=== PATIENT | male | born 1980 | race Caucasian/White ===

== ENCOUNTER 2017-10-12 16:06 | Inpatient (IN) | payer OTHER ==
[~2017-10-12] VITALS: Ht 188 cm; Wt 73.0 kg
[2017-10-12] MEDS ORDERED: SODIUM CHLORIDE 0.9% 1000ML 1,000 ML IV STA (16:45)
[2017-10-12] MEDS ORDERED: ONDANSETRON INJ 2 MG/ML 2 ML VIAL IV STA (16:45)
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
--- NOTE | 2017-10-12 17:13 | DIAGNOSTIC IMAGING REPORT ---
CHEST ONE VIEW PORTABLE CLINICAL HISTORY: Altered mental status. Weakness. COMPARISON STUDY: No previous studies for comparison. FINDINGS: There is a scoliosis. The examination is rotated. The heart is normal in size. There is no failure. There is no focal pulmonary consolidation. There is slight interstitial thickening at the lung bases. There is minor blunting right lateral costophrenic angle. There are surgical clips within the left upper quadrant. There is mild elevation of the right scapula. There is a partially visualized 6 cm mixed lytic and sclerotic lesion involving the proximal left humerus. This is relatively nonaggressive imaging characteristics.[ IMPRESSION: 1. Mild basilar interstitial thickening, a finding of uncertain chronicity 2. No evidence of lobar consolidation 3. No evidence of failure 4. Minor blunting of the right lateral costophrenic angle Electronically signed by: Vidal Martinez M.D. 10/12/2017 5:11 PM Dictated Date/Time: 10/12/2017 5:09 PM
[2017-10-12] MEDS ORDERED: OPTIRAY 320 IV PRN (17:45)
[2017-10-12] MEDS ORDERED: LEVO200T6 PO (18:11)
[2017-10-12] MEDS ORDERED: BENZ10LO15 TOP (18:11)
[2017-10-12] MEDS ORDERED: ACYC-223 PO (18:11)
[2017-10-12] MEDS ORDERED: CLON2TAB3 PO (18:11)
[2017-10-12] MEDS ORDERED: HYDR50CA2 PO (18:11)
[2017-10-12] MEDS ORDERED: [UNRECOGNIZED DRUG - CODE] SQ (18:11)
[2017-10-12] MEDS ORDERED: LEVO50TA PO (18:11)
[2017-10-12 18:16] LABS: HEMATOCRIT 37.7 % (42-52); MEAN CELL VOLUME 94.5 fL (80-100); MEAN CORPUSCULAR HEMOGLOBIN 32.6 pg (25-34); MEAN CORPUSCULAR HGB CONC 34.5 g/dl (32-36); RED CELL DISTRIBUTION WIDTH CV 15.8 % (11.5-14.5); RED CELL DISTRIBUTION WIDTH SD 54.7 fL (36.4-46.3); WHITE BLOOD COUNT 3.85 K/uL (4.8-10.8)
[2017-10-12 18:19] LABS: ALBUMIN 3.2 gm/dl (3.4-5.0); ALKALINE PHOSPHATASE 73 U/L (45-117); ALT/SGPT 22 U/L (12-78); AST/SGOT 26 U/L (15-37); BLOOD UREA NITROGEN 10 mg/dl (7-18); CALCIUM 9.1 mg/dl (8.5-10.1); CARBON DIOXIDE 25 mmol/L (21-32); CREATININE 0.88 mg/dl (0.60-1.40); GLUCOSE 75 mg/dl (70-99); POTASSIUM 3.6 mmol/L (3.5-5.1); SODIUM 143 mmol/L (136-145); TOTAL PROTEIN 7.8 gm/dl (6.4-8.2)
[2017-10-12 18:24] LABS: PTT PATIENT 24.2 SECONDS (21.0-31.0)
[2017-10-12 18:26] LABS: MEAN PLATELET VOLUME 11.4 fL (7.4-10.4); PLATELET COUNT 61 K/uL (130-400)
[2017-10-12] MEDS ORDERED: DAPTOmycin IV 500 MG in SODIUM CHLORIDE 0.9% 50ML 50 ML IV STA (18:27)
[2017-10-12] MEDS ORDERED: PIPERACILLIN/TAZOBACTAM 4.5 GM/100ML D5W IV STA (18:27)
[2017-10-12 18:28] LABS: BASO % 3.4 %; BASO ABS # 0.13 K/uL (0-0.2); EOS % 4.4 %; EOS ABS # 0.17 K/uL (0-0.5); IG# 0.04 K/uL (0.00-0.02); LYMPH % 61.6 %; LYMPH ABS # 2.37 K/uL (1.2-3.4); MONO ABS # 1.04 K/uL (0.11-0.59); NEUT % 2.6 %
--- NOTE | 2017-10-12 19:22 | DIAGNOSTIC IMAGING REPORT ---
CT HEAD WITHOUT CONTRAST (CT) CLINICAL HISTORY: Acute change in mental status. Weakness. COMPARISON STUDY: No previous studies for comparison. TECHNIQUE: Axial CT of the brain is performed from the vertex to the skull base. IV contrast was not administered for this examination. A dose lowering technique was utilized adhering to the principles of ALARA. CT DOSE: FINDINGS: No intra or extra-axial mass lesions are visualized. There is no CT evidence of acute cortical infarction. There is no evidence of midline shift. There is no acute hemorrhage. No calvarial fractures are visualized. There is no evidence of pathologic ventricular dilatation. There is near complete opacification of the left maxillary sinus. This demonstrates areas of increased density raises the possibility of a fungal etiology. There are possible erosive changes involving the medial wall the left maxilla sinus. There are age-indeterminate nasal bone fractures. IMPRESSION: 1. No acute intracranial findings 2. Age-indeterminate nasal bone fractures 3. Inflammatory changes within the left maxillary sinus, possibly of a fungal etiology Electronically signed by: Vidal Martinez M.D. 10/12/2017 7:21 PM Dictated Date/Time: 10/12/2017 7:19 PM
--- NOTE | 2017-10-12 19:28 | DIAGNOSTIC IMAGING REPORT ---
CT ABD/PELVIS IV CONTRAST ONLY CLINICAL HISTORY: Generalized abdominal pain COMPARISON STUDY: None. TECHNIQUE: Following the IV administration of 119 mL of Optiray-320, CT scan of the abdomen and pelvis was performed from the lung bases to the proximal femurs. Images are reviewed in the axial, sagittal, and coronal planes. IV contrast was administered without complication. A dose lowering technique was utilized adhering to the principles of ALARA. CT DOSE: 1623.44 mGy.cm FINDINGS: Lower chest: There are right middle lobe and right lower lobe nodular opacities, statistically inflammatory. There is also a 6 mm left lower lobe pulmonary nodule. Follow-up scanning subsequent antibiotic therapy is recommended. There are no significant pleural effusions. Liver: There is mild hepatomegaly. No focal hepatic masses are visualized. Gallbladder: Unremarkable. Spleen: Surgically absent Pancreas: Unremarkable. Adrenal glands: Unremarkable. Kidneys: There is symmetric renal cortical enhancement. The kidneys are normal in size without hydronephrosis. Bowel: There are no transition zones indicate bowel obstruction. There is no evidence of acute diverticulitis. Evaluation is limited due to the lack of intra-abdominal fat, and the lack of oral contrast. In addition there is motion artifact. The appendix is borderline dilated but there are no periappendiceal inflammatory changes. Peritoneum: There is no intraperitoneal free air or abdominal ascites. Vasculature: There is no evidence of abdominal aortic aneurysm. There is indwelling IVC filter. Several struts project beyond the IVC lumen. Adenopathy: None. Pelvic viscera: The bladder, and pelvic viscera are unremarkable. Skeletal structures: There is an abnormal trabecular pattern of the bone suggestive of multiple bone infarcts. IMPRESSION: 1. Slightly limited study from a technical standpoint 2. No evidence of bowel obstruction. No evidence of free air 3. Mild hepatomegaly. Surgically absent spleen 4. 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 5. Right middle lobe and right lower lobe nodularity, likely secondary to a pneumonia. There is also a nonspecific subcentimeter left lower lobe pulmonary nodule. Follow-up scanning subsequent to antibiotic therapy is recommended. Electronically signed by: Vidal Martinez M.D. 10/12/2017 7:27 PM Dictated Date/Time: 10/12/2017 7:21 PM
[2017-10-12] MEDS ORDERED: SODIUM CHLORIDE 0.9% 500ML 500 ML IV STA (20:18)
--- NOTE | 2017-10-12 22:57 | EMERGENCY ROOM VISIT NOTE ---
ED Visit Note First contact with patient: 16:39 The patient was to be transferred to [facility] in [place]. Unfortunately, an ambulance could not be secured until tomorrow at 9:00 in the morning. I did speak with the [facility] hospitalist from [facility]. The patient will be hospitalized at this facility overnight and then transferred in the morning when an ambulance is available.
[2017-10-13 01:03] VITALS: O2SAT 96
[2017-10-13] MEDS ORDERED: ACETAMINOPHEN 325 MG TAB PO PRN (01:45)
[2017-10-13] MEDS ORDERED: PROCHLORPERAZINE INJ 5 MG in SYRINGE 4 ML IV PRN (01:45)
[2017-10-13] MEDS ORDERED: CLONAZEPAM 1 MG TAB PO PRN (01:45)
[2017-10-13] MEDS ORDERED: OXYCODONE/ACETAMINOPHEN 5-325 TAB PO PRN (01:45)
[2017-10-13 01:53] VITALS: BP 97/52; TEMP 36.9; Ht 188 cm; Wt 73.0 kg
[2017-10-13] MEDS ORDERED: SODIUM CHLOR 0.45% + 20MEQ KCL 1,000 ML IV ONE (02:00)
[2017-10-13 02:35] LABS: CALCIUM 8.4 mg/dl (8.5-10.1); CREATININE 0.86 mg/dl (0.60-1.40); POTASSIUM 3.6 mmol/L (3.5-5.1)
[2017-10-13 02:48] LABS: HEMATOCRIT 31.8 % (42-52); HEMOGLOBIN 10.9 g/dL (14.0-18.0); MEAN CELL VOLUME 94.6 fL (80-100); MEAN CORPUSCULAR HEMOGLOBIN 32.4 pg (25-34); MEAN CORPUSCULAR HGB CONC 34.3 g/dl (32-36); MEAN PLATELET VOLUME 10.3 fL (7.4-10.4); PLATELET COUNT 71 K/uL (130-400); RED CELL DISTRIBUTION WIDTH CV 15.8 % (11.5-14.5); RED CELL DISTRIBUTION WIDTH SD 54.3 fL (36.4-46.3); WHITE BLOOD COUNT 3.78 K/uL (4.8-10.8)
[2017-10-13 03:38] LABS: BASO % 3.7 %; BASO ABS # 0.14 K/uL (0-0.2); EOS % 5.3 %; IG# 0.01 K/uL (0.00-0.02); LYMPH % 53.2 %; LYMPH ABS # 2.01 K/uL (1.2-3.4); MONO ABS # 1.17 K/uL (0.11-0.59); NEUT % 6.5 %; NEUT ABS # 0.25 K/uL (1.4-6.5)
[2017-10-13] MEDS: LEVOTHYROXINE 200 MCG TAB PO SCH ×2 (06:12→06:23)
[2017-10-13] MEDS: LEVOTHYROXINE 50 MCG TAB PO SCH ×2 (06:13→06:23)
[2017-10-13 06:46] VITALS: BP 97/52; PULSE 80; TEMP 36.9; O2SAT 96
--- NOTE | 2017-10-13 07:43 | Discharge Instructions ---
Discharge Instructions Date of Service October 13, 2017. Admission Reason for Admission: Pancytopenia Discharge Discharge Diagnosis / Problem: Pancytopenia, persistent bowel incontinence Discharge Goals Goal(s): Diagnostic testing, Therapeutic intervention Activity Recommendations Activity Level: Up Ad Janine . Additional Information Patient informed of condition: Yes Advance Directives: No DNR: No Level of Care: Other Communicable Disease: No (hx mrsa) Prognosis: Stable Bhardwaj Catheter: No Current Hospital Diet Patient's current hospital diet: Regular Diet, Low Lactose Diet Discharge Diet Recommended Diet: Regular Diet Fluid Restriction: None Pending Studies Studies pending at discharge: yes (HIT screen) List of pending studies: HIT screen Medical Emergencies . Who to Call and When: Medical Emergencies: If at any time you feel your situation is an emergency, please call 911 immediately. . Non-Emergent Contact Non-Emergency issues call your: Primary Care Provider . Past History Medical & Surgical History: (1) Pancytopenia (2) History of MRSA infection (3) History of spinal surgery . "Provider Documentation" section prepared by Bob Orellana . Core Measure Problem Core Measures: None
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
[2017-10-13] MEDS ORDERED: ACYCLOVIR 400 MG TAB PO SCH (09:00)
--- NOTE | 2017-10-13 18:09 | Discharge Summary ---
Discharge Summary Date of Service October 13, 2017. Discharge Summary Date of admission : 10/13/2017 Date of discharge: 10/13/2017 DIAGNOSES ON ADMISSION: 1. Pancytopenia New onset thrombocytopenia; history thrombocythemia as per records-intermittent epistaxis symptoms (past history ITP sp splenectomy on Romiplostin) ro HIT (Lovenox administration during recent [facility] confinement) Chronic anemia (hemoglobin better than baseline of 10) Chronic leukopenia 2. Worsening back pain, persistent bowel incontinence post recent [facility] confinement September 2017 hx spinal abscess surgery (MRSA as per records) July 2017[facility]. No overt sepsis for now. 3. Recent confinement in [facility] for intentional foreign body ingestions sp colonoscopic removal (09/2017) 4. hx PE not on anticoagulation secondary to past history thrombocytopenia status post IVC filter placement 5. hypothyroidism, TSH slightly elevated 6. Past tobacco abuse 7. hx malingering behavior as per records DIAGNOSES ON DISCHARGE : 1. Pancytopenia New onset thrombocytopenia; history thrombocythemia as per records-intermittent epistaxis symptoms (past history ITP sp splenectomy on Romiplostin) ro HIT (Lovenox administration during recent [facility] confinement) Chronic anemia (hemoglobin better than baseline of 10) Chronic leukopenia 2. Worsening back pain, persistent bowel incontinence post recent [facility] confinement September 2017 hx spinal abscess surgery (MRSA as per records) July 2017[facility]. No overt sepsis for now. 3. Recent confinement in [facility] for intentional foreign body ingestions sp colonoscopic removal (09/2017) 4. hx PE not on anticoagulation secondary to past history thrombocytopenia status post IVC filter placement 5. hypothyroidism, TSH slightly elevated 6. Past tobacco abuse 7. hx malingering behavior as per records 8. abnormal HIT screen HOSPITAL COURSE: Briefly, the patient is an inmate who was brought to the hospital for evaluation of weakness, persistent bowel incontinence since colonoscopy at [place] a few days ago, back pain. Head CT did not show any pathology. CT abdomen and pelvis showed no evidence of bowel obstruction, mild hepatomegaly, absent spleen. LABORATORY DATA: , hemoglobin 13, hematocrit 37, white cell count 3.8, platelets 61. Patient received Daptomycin and Zosyn at [facility] ER for possible infection. Accepted for transfer by [facility] hospitalist verification lead, Dr. cShmitt. Transfer precluded by transportation unavailability. Patient subsequently admitted to the floor pending transport availability in AM. Heparin induced thrombocytopenia (HIT) screen noted to be abnormal. Rest of HIT panel pending. Peripheral blood smear studies pending. May need Hematology evaluation at [facility]. No additional antibiotics given during inpatient stay sans overt signs of sepsis. Dedicated imaging for patient's back complaints to be deferred to [facility], [place] specialist if felt to be warranted. Total time to dictate this discharge summary was 15 minutes.
[2017-10-13] MEDS ORDERED: hydrOXYzine HCL 25 MG TAB PO SCH (21:00)
== END 2017-10-13 08:16 | disposition short-term general hospital (02) | DRG 810 ==
LOC: C.EDB 16:08 → C.MS2W 10-13 00:26 → UNDOADMIN 10-13 00:26 → ENRESERV 10-13 00:56
PROVIDERS: ADMIT Internal Medicine; ATTEND Internal Medicine
DX: D61.818 Other pancytopenia (principal); D69.6 Thrombocytopenia, unspecified; D75.82 Heparin induced thrombocytopenia (HIT); D72.819 Decreased white blood cell count, unspecified; M54.9 Dorsalgia, unspecified; R15.9 Full incontinence of feces; E03.9 Hypothyroidism, unspecified; Z86.2 Personal history of diseases of the blood and blood-forming organs and certain disorders involving the immune mechanism; Z86.14 Personal history of Methicillin resistant Staphylococcus aureus infection; Z86.711 Personal history of pulmonary embolism; Z87.891 Personal history of nicotine dependence; Z90.81 Acquired absence of spleen; Z98.890 Other specified postprocedural states; Z79.899 Other long term (current) drug therapy; Z88.1 Allergy status to other antibiotic agents; Z88.2 Allergy status to sulfonamides; Z88.6 Allergy status to analgesic agent

== ENCOUNTER → 2017-11-28 | Outpatient (CLI) | payer OTHER ==
[~2017-11-28] MED LIST: ACET-1175 PO; CLON0.5T9 PO; CYAN1TAB2 PO; DOXY100C76 PO; FOLI1TAB8 PO; HYDR50CA2 PO; LEVO1TAB34 PO; LEVO200T6 PO; LEVO50TA PO; LEVO50TA6 PO; MULT-506 PO; MULT1CAP57 PO; NORT25CA PO; NUTR-1260 PO; ONDA4TAB46 PO; PRD/1 PO; PRLSR20 PO; PYRI100T4 PO; [UNRECOGNIZED DRUG - CODE] PO; [UNRECOGNIZED DRUG - CODE] PO; [UNRECOGNIZED DRUG - CODE] SQ
[2017-11-28 02:31] LABS: HEMATOCRIT 26.3 % (42-52); MEAN CELL VOLUME 114.3 fL (80-100); MEAN CORPUSCULAR HEMOGLOBIN 39.1 pg (25-34); MEAN CORPUSCULAR HGB CONC 34.2 g/dl (32-36); NUCLEATED RED BLOOD CELL ABS 0.12 K/uL (0-0); PLATELET COUNT 12 K/uL (130-400); RED CELL DISTRIBUTION WIDTH CV 18.3 % (11.5-14.5); RED CELL DISTRIBUTION WIDTH SD 61.1 fL (36.4-46.3); WHITE BLOOD COUNT 4.22 K/uL (4.8-10.8)
[2017-11-28 05:38] LABS: BASO % 2.6 %; BASO ABS # 0.11 K/uL (0-0.2); EOS % 1.2 %; EOS ABS # 0.05 K/uL (0-0.5); MONO % 32.2 %; MONO ABS # 1.36 K/uL (0.11-0.59)
--- NOTE | 2018-01-02 08:31 | CODING QUERY NO DIAGNOSIS ---
TREATMENT RENDERED WITHOUT A DIAGNOSIS To promote full compliance with coding requirements relating to patient care, physician participation is requested in all cases of manager sterile uncertainty. Please assist us with providing a diagnosis/symptom for the test(s) below: A diagnosis/symptom was not documented on your Order. A valid diagnosis/symptom is required to bill all insurances. Please remember that we are unable to code a diagnosis of rule out, probable, possible, questionable, or suspected. Tests that require a diagnosis: DOS: 11/28/17 * CBC W/ AUTO DIFF DIAGNOSIS: Provider Signature: Date: Thank you Bonnie Jones [id number] Information Management Once completed, please kindly fax back to [phone] For questions please call [phone]
== END ==
LOC: C.LABSPEC 12:01
DX: Z01.89 Encounter for other specified special examinations (principal)

== ENCOUNTER → 2017-12-12 | Outpatient (CLI) | payer OTHER ==
[2017-12-12 10:25] LABS: HEMATOCRIT 32.7 % (42-52); HEMOGLOBIN 10.9 g/dL (14.0-18.0); MEAN CELL VOLUME 121.1 fL (80-100); MEAN CORPUSCULAR HEMOGLOBIN 40.4 pg (25-34); MEAN CORPUSCULAR HGB CONC 33.3 g/dl (32-36); PLATELET COUNT 6 K/uL (130-400); RED CELL DISTRIBUTION WIDTH CV 18.8 % (11.5-14.5); RED CELL DISTRIBUTION WIDTH SD 74.1 fL (36.4-46.3); WHITE BLOOD COUNT 4.54 K/uL (4.8-10.8)
[2017-12-12 10:26] LABS: BASO % 4.2 %; BASO ABS # 0.19 K/uL (0-0.2); EOS % 3.7 %; EOS ABS # 0.17 K/uL (0-0.5); LYMPH % 59.3 %; LYMPH ABS # 2.69 K/uL (1.2-3.4); MONO % 24.4 %; MONO ABS # 1.11 K/uL (0.11-0.59); NEUT % 8.4 %; NEUT ABS # 0.38 K/uL (1.4-6.5)
== END ==
LOC: C.LABSPEC 09:20
DX: Z01.89 Encounter for other specified special examinations (principal)

== ENCOUNTER → 2017-12-25 | Outpatient (CLI) | payer OTHER ==
[~2017-12-25] MED LIST changes: -MULT-506 PO
[2017-12-25 10:00] LABS: HEMATOCRIT 38.3 % (42-52); HEMOGLOBIN 12.2 g/dL (14.0-18.0); MEAN CELL VOLUME 113.6 fL (80-100); MEAN CORPUSCULAR HEMOGLOBIN 36.2 pg (25-34); MEAN PLATELET VOLUME 9.9 fL (7.4-10.4); PLATELET COUNT 753 K/uL (130-400); RED CELL DISTRIBUTION WIDTH CV 13.8 % (11.5-14.5); RED CELL DISTRIBUTION WIDTH SD 57.5 fL (36.4-46.3); WHITE BLOOD COUNT 6.66 K/uL (4.8-10.8)
[2017-12-25 10:05] LABS: MEAN CORPUSCULAR HGB CONC 31.9 g/dl (32-36)
[2017-12-25 10:27] LABS: BASO % 0.6 %; BASO ABS # 0.04 K/uL (0-0.2); EOS % 0.3 %; EOS ABS # 0.02 K/uL (0-0.5); LYMPH % 50.2 %; LYMPH ABS # 3.34 K/uL (1.2-3.4); MONO % 30.5 %; MONO ABS # 2.03 K/uL (0.11-0.59); NEUT % 18.4 %; NEUT ABS # 1.23 K/uL (1.4-6.5)
== END | disposition home or self-care (01) ==
LOC: C.LABSPEC 09:13
DX: D69.3 Immune thrombocytopenic purpura (principal)

== ENCOUNTER → 2017-12-28 | Outpatient (CLI) | payer OTHER ==
[2017-12-28 17:38] LABS: BASO % 0.3 %; BASO ABS # 0.02 K/uL (0-0.2); HEMATOCRIT 39.7 % (42-52); HEMOGLOBIN 12.7 g/dL (14.0-18.0); IG# 0.01 K/uL (0.00-0.02); LYMPH % 24.6 %; LYMPH ABS # 1.75 K/uL (1.2-3.4); MEAN CELL VOLUME 111.2 fL (80-100); MEAN CORPUSCULAR HEMOGLOBIN 35.6 pg (25-34); MEAN PLATELET VOLUME 9.9 fL (7.4-10.4); MONO % 14.9 %; MONO ABS # 1.06 K/uL (0.11-0.59); NEUT % 60.1 %; NEUT ABS # 4.28 K/uL (1.4-6.5); PLATELET COUNT 456 K/uL (130-400); RED CELL DISTRIBUTION WIDTH CV 13.1 % (11.5-14.5); RED CELL DISTRIBUTION WIDTH SD 52.7 fL (36.4-46.3); WHITE BLOOD COUNT 7.12 K/uL (4.8-10.8)
== END | disposition home or self-care (01) ==
LOC: C.LABSPEC 17:19
PROVIDERS: ATTEND Physician Assistant
DX: D69.41 Evans syndrome (principal)

== ENCOUNTER → 2017-12-31 | Outpatient (CLI) | payer OTHER ==
[2017-12-31 16:15] LABS: BASO % 0.6 %; BASO ABS # 0.05 K/uL (0-0.2); EOS % 0.2 %; EOS ABS # 0.02 K/uL (0-0.5); HEMATOCRIT 40.3 % (42-52); HEMOGLOBIN 12.7 g/dL (14.0-18.0); IG# 0.01 K/uL (0.00-0.02); LYMPH % 19.9 %; LYMPH ABS # 1.66 K/uL (1.2-3.4); MEAN CELL VOLUME 111.6 fL (80-100); MEAN CORPUSCULAR HEMOGLOBIN 35.2 pg (25-34); MEAN CORPUSCULAR HGB CONC 31.5 g/dl (32-36); MEAN PLATELET VOLUME 10.5 fL (7.4-10.4); MONO % 9.6 %; NEUT % 69.6 %; NEUT ABS # 5.82 K/uL (1.4-6.5); PLATELET COUNT 216 K/uL (130-400); RED CELL DISTRIBUTION WIDTH CV 13.2 % (11.5-14.5); RED CELL DISTRIBUTION WIDTH SD 53.6 fL (36.4-46.3); WHITE BLOOD COUNT 8.36 K/uL (4.8-10.8)
[2017-12-31 16:43] LABS: ALBUMIN 3.9 gm/dl (3.4-5.0); ALKALINE PHOSPHATASE 71 U/L (45-117); ALT/SGPT 55 U/L (12-78); AST/SGOT 25 U/L (15-37); BLOOD UREA NITROGEN 21 mg/dl (7-18); CALCIUM 8.9 mg/dl (8.5-10.1); CARBON DIOXIDE 29 mmol/L (21-32); CREATININE 0.97 mg/dl (0.60-1.40); GLUCOSE 92 mg/dl (70-99); POTASSIUM 4.1 mmol/L (3.5-5.1); SODIUM 139 mmol/L (136-145); TOTAL PROTEIN 7.5 gm/dl (6.4-8.2)
== END | disposition home or self-care (01) ==
LOC: C.LABSPEC 14:46
PROVIDERS: ATTEND Physician Assistant Medical
DX: D69.3 Immune thrombocytopenic purpura (principal)

== ENCOUNTER 2018-01-04 16:59 | Inpatient (IN) | payer OTHER ==
[~2018-01-04] VITALS: Ht 188 cm; Wt 82.8 kg
[~2018-01-04 16:59] MED LIST changes: -DOXY100C76 PO; -LEVO1TAB34 PO; -LEVO200T6 PO; -LEVO50TA6 PO; -NORT25CA PO; -ONDA4TAB46 PO; -PRD/1 PO; -PRLSR20 PO; -[UNRECOGNIZED DRUG - CODE] PO
[2018-01-04] MEDS ORDERED: LEVO200T6 PO (18:11)
--- NOTE | 2018-01-04 19:05 | EMERGENCY ROOM VISIT NOTE ---
History Report prepared by Sandy: Sivakumar Guzman Under the Supervision of: Dr. Rodney Sanabria M.D. First contact with patient: 18:51 Chief Complaint: ABNORMAL LABS Stated Complaint: ABNORMAL LABS, PLATELETS 5000 History of Present Illness The patient is a 37 year old male with a past medical history of autoimmune thrombocytopenia, hx if ITP, Hx os MRSA infection, hypothyroidism, pancytopenia, personality disorder, and polysubstance abuse who presents to the ED after having a low platelet count in recent lab work. The patient states that his platelet count has been an issue for a while and he follows up with [facility]. The patient explained that his platelet count has been worsening each week. He also notes that he has a history of ITP and has received IVIG and transfusion treatments. He also noted that he takes prednisone daily. Positive intermittent epistaxis, genitival bleeding when brushing teeth, Hx of back infection and operation, MRSA, and abnormal LFTs. Source of History: patient Onset: Within the last day Position: nose Quality: other (bleeding) Timing: intermittent Associated Symptoms: + back pain Review of Systems See HPI for pertinent positives and negatives. A total of ten systems were reviewed and were otherwise negative. Past Medical & Surgical Medical Problems: (1) Autoimmune thrombocytopenia (2) History of ITP (3) History of MRSA infection (4) Hx of infection (5) Hypothyroidism (6) Pancytopenia (7) Personality disorder (8) Polysubstance abuse Surgical Problems: (1) H/O Spinal surgery (2) H/O splenectomy (3) History of spinal surgery Family History Heart disease Social History Smoking Status: Never Smoker Alcohol Use: none Drug Use: none Marital Status: single Housing Status: other Occupation Status: other Current/Historical Medications Scheduled Clonazepam (Klonopin), 0.5 MG PO BID Cyanocobalamin (B-12), 100 MG PO DAILY Doxycycline Monohydrate (Monodox), 100 MG PO BID Folic Acid (Folvite), 1 MG PO DAILY Hydroxyzine Pamoate (Vistaril), 50 MG PO BID Levothyroxine Sodium (Levothyroxine Sodium), 200 MCG PO DAILY Levothyroxine Sodium (Levothyroxine Sodium), 1 TAB PO DAILY Multiple Vitamin (Thera-Tabs), 1 TAB PO DAILY Nortriptyline (Pamelor), 25 MG PO HS Omeprazole (Prilosec), 20 MG PO DAILY Prednisone (Prednisone), 1 DOSE PO UD Pyridoxine (Vitamin B6), 100 MG PO BID Scheduled PRN Ondansetron Hcl (Zofran), 4 MG PO QID PRN for Nausea Allergies Coded Allergies: Aspirin (Unverified Allergy, Unknown, UNKNOWN, 01/04/18) Azithromycin (Unverified Allergy, Unknown, UNKNOWN, 01/04/18) Ibuprofen (Unverified Allergy, Unknown, UNKNOWN, 01/04/18) Naproxen (Unverified Allergy, Unknown, UNKNOWN, 01/04/18) Sulfamethoxazole w/Trimethoprim (Unverified Allergy, Unknown, UNKNOWN, 03/14) Uncoded Allergies: NO OC SPRAY (Allergy, Unknown, UNKNOWN, 10/12/17) Physical Exam Vital Signs Date Time Temp Pulse Resp B/P (MAP) Pulse Ox O2 Delivery O2 Flow Rate FiO2 01/04/18 21:40 72 16 117/70 97 01/04/18 20:36 116/89 95 Room Air 01/04/18 20:35 71 21 01/04/18 20:30 109/73 01/04/18 20:29 69 19 01/04/18 20:01 106/71 01/04/18 19:59 83 18 01/04/18 19:46 69 01/04/18 19:30 110/71 01/04/18 17:31 36.7 81 18 123/77 97 Room Air Physical Exam GENERAL: Awake, alert, well-appearing, NAD HENT: Normocephalic, atraumatic. EYES: Normal conjunctiva. Sclera non-icteric. PERRL. No anisocoria. NECK: Supple. No nuchal rigidity. FROM. Very long vertical incisional scar running from mid C spine to upper L spine with the distal portion bandaged. RESPIRATORY: CTAB, no rhonchi, wheezing, crackles CARDIAC: RRR, no MRG ABDOMEN: Soft, NTND, BS+ MSK: No chest wall TTP, no LE edema NEURO: GCS 15, CN 2-12 intact, moves all 4s on command SKIN: No rash or jaundice noted.Cutting scars bilateral UE, no petechiae or purpura noted Medical Decision & Procedures Laboratory Results Test 01/04/18 19:05 Neutrophils % (Manual) 37.6 % Lymphocytes % (Manual) 27.2 % Variant Lymphocytes % (manual) 15.8 % Monocytes % (Manual) 15.8 % Eosinophils % (Manual) 1.8 % Basophils % (Manual) 1.8 % (0-2) Neutrophils # (Manual) 1.96 K/uL (1.4-6.5) Total Absolute Neutrophils 1.96 K/uL (1.4-6.5) Lymphocytes # (Manual) 1.41 K/uL (1.2-3.4) Absolute Variant Lymphocytes 0.82 K/uL Total Absolute Lymphocytes 2.24 K/uL (1.2-3.4) Monocytes # (Manual) 0.82 K/uL (0.11-0.59) Eosinophils # (Manual) 0.09 K/uL (0-0.5) Basophils # (Manual) 0.09 K/uL (0-0.2) Stomatocytes 1+ Prothrombin Time 9.7 SECONDS (9.0-12.0) Prothromb Time International Ratio 0.9 (0.9-1.1) Activated Partial Thromboplast Time 22.9 SECONDS (21.0-31.0) Partial Thromboplastin Ratio 0.9 Total Bilirubin 0.6 mg/dl (0.2-1) Direct Bilirubin 0.2 mg/dl (0-0.2) Aspartate Amino Transf (AST/SGOT) 29 U/L (15-37) Alanine Aminotransferase (ALT/SGPT) 37 U/L (12-78) Alkaline Phosphatase 62 U/L (45-117) Total Protein 7.6 gm/dl (6.4-8.2) Albumin 3.7 gm/dl (3.4-5.0) Lipase 409 U/L (73-393) Laboratory results reviewed by me Medications Administered Medications (Trade) Dose Ordered Sig/Mayra Route Start Time Stop Time Status Last Admin Dose Admin Oxymetazoline HCl (Afrin 0.05% Nasal [place]) 75 sprays STK-MED ONCE .ROUTE 01/04/18 19:19 01/04/18 19:20 DC 01/04/18 19:19 75 SPRAYS Prednisone (PredniSONE TAB) 80 mg STK-MED ONCE .ROUTE 01/04/18 21:02 01/04/18 21:03 DC 01/04/18 21:12 80 MG Pantoprazole Sodium (Protonix Tab) 40 mg NOW STAT PO 01/04/18 21:19 01/04/18 21:34 DC 01/04/18 21:38 40 MG ED Course 1857: The patient was evaluated in room A11. A complete history and physical exam was performed. 1914: I evaluated the patient[place] [address] and hemoglobin of 9. 1941: I reevaluated the patient and he is experiencing light epistaxis and he refused to clamp but was willing to use a tissue. 2019: I spoke to Dr. Kurt Taylor instructor programmable controllers and she recommends transfusion and prednisone. If there is no response after 24-48 hours, then transfer the patient to [facility]. 2100:Upon reexamination, the patient was resting in bed. I discussed the test results and treatment plan with Dr. Carrie Taylor Hospitalist. The patient will be evaluated for further management by him. Medical Decision Nursing notes reviewed. Ancillary studies and prior records reviewed. DDx: Thrombocytopenia, coagulopathy, infection, indication side effects Patient was seen and evaluated the bedside. The patient had a known history of ITP. 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 The patient had also received IVIG as well as steroids and platelet transfusions. The patient was referred here for low platelet count. Upon review of his lab work it appeared to be that the patient had a platelet count of 55,000. Patient did have repeat blood work completed. The patient's hemoglobin was much improved compared to prior however the patient's platelet count was at 5000. The patient did have some very light epistaxis that was well controlled just with the tissue. The patient did have some Afrin applied. Patient declined to use a nasal clinic. I did reiterate to the patient that we would need to stem his bleeding especially given his coagulopathy. I did speak with the on-call instructor programmable controllers oncologist from [facility] who stated that she would recommend load of prednisone. The patient initially declined. I had a discussion with the patient that if he declined treatment that he would not benefit from admission. The patient acquiesced to treatment. Patient was given 1 mg/kg load. I did speak with the on-call instructor programmable controllers oncologist at [facility]. She recommended continuing to do the prednisone as a load but would recommend against any platelet transfusion at this time. She stated this would only be necessary if the patient had uncontrollable bleeding or concerning bleeding. I do not believe he has concerning bleeding at this time. She also recommended drawing blood cultures as the patient has had dementia for developing thrombocytopenia secondary to infection. The patient currently denies any headache fevers, chills, cough, urinary symptoms. The patient has a nonfocal neurologic exam I do not believe he requires a CT of the brain. I did speak with the on-call hospitalist who agreed to further evaluate and treat the patient with the understanding that the patient's thrombocytopenia did not improve that he would be transferred to [facility]. Medication Reconcilliation Current Medication List: was personally reviewed by me Blood Pressure Screening Patient's blood pressure: Normal blood pressure Consults Time Called: 2014 Consulting Physician: Dr. Kurt Taylor Milieu Therapist Returned Call: 2018 Discussed the patient's case with Dr. Kurt Haider. She recommends transfusion and prednisone. If there is no response after 24-48 hours , then transfer the patient to [facility]. Additional Consults: Time Called: 2100 Consulted Physician: Dr. Carrie Taylor Hospitallori Returned Call: 2100 Additional Comments: Discussed the patient's case with Dr. Carrie Haider. The patient will be evaluated for further treatment and disposition. Consulted Physician: [facility] Heme/Onc Service Additional Comments: Physician recommended treatment w/ 1mg/kg load of prednisone PO. No platelet transfusion at this time unless uncontrollable or concerning hemorrhage. Plan for re-eval w/ labs and if little to no improvement may transfer for further eval/treatment tomorrow or earlier if clinical deterioration or issues. Impression Primary Impression: Acute ITP Additional Impressions: Epistaxis Anemia Scribe Attestation The scribe's documentation has been prepared under my direction and personally reviewed by me in its entirety. I confirm that the note above accurately reflects all work, treatment, procedures, and medical decision making performed by me. Departure Information Dispostion Being Evaluated By Hospitalist Prescriptions Levothyroxine Sodium (LEVOTHYROXINE SODIUM) 50 Mcg Tab 1 TAB PO DAILY for 30 Days, #30 TAB 1 Refill Prov: Berry Butler MD 01/04/18 Referrals Jose PEREZ (PCP) Forms HOME CARE DOCUMENTATION FORM, IMPORTANT VISIT INFORMATION, WORK / SCHOOL INSTRUCTIONS Patient Instructions My [facility] Problem Qualifiers Additional Impressions: Anemia Anemia type: unspecified type Qualified Codes: D64.9 - Anemia, unspecified
[2018-01-04] MEDS ORDERED: OXYMETAZOLINE HCL 0.05% NA SPR 15 ML BTL ONE ×2 (19:19→19:30)
[2018-01-04 19:30] LABS: INR 0.9 (0.9-1.1); PTT PATIENT 22.9 SECONDS (21.0-31.0)
[2018-01-04 19:40] LABS: ALBUMIN 3.7 gm/dl (3.4-5.0); ALKALINE PHOSPHATASE 62 U/L (45-117); ALT/SGPT 37 U/L (12-78); AST/SGOT 29 U/L (15-37); BLOOD UREA NITROGEN 21 mg/dl (7-18); CALCIUM 9.1 mg/dl (8.5-10.1); CARBON DIOXIDE 30 mmol/L (21-32); CREATININE 0.87 mg/dl (0.60-1.40); GLUCOSE 74 mg/dl (70-99); LIPASE 409 U/L (73-393); POTASSIUM 3.8 mmol/L (3.5-5.1); SODIUM 140 mmol/L (136-145); TOTAL PROTEIN 7.6 gm/dl (6.4-8.2)
[2018-01-04 20:01] LABS: HEMATOCRIT 38.6 % (42-52); HEMOGLOBIN 12.5 g/dL (14.0-18.0); MEAN CELL VOLUME 107.2 fL (80-100); MEAN CORPUSCULAR HEMOGLOBIN 34.7 pg (25-34); MEAN CORPUSCULAR HGB CONC 32.4 g/dl (32-36); PLATELET COUNT 5 K/uL (130-400); RED CELL DISTRIBUTION WIDTH CV 13.1 % (11.5-14.5); RED CELL DISTRIBUTION WIDTH SD 51.3 fL (36.4-46.3)
[2018-01-04] MEDS ORDERED: LEVO1TAB34 PO (21:11)
[2018-01-04] MEDS ORDERED: PRD/1 PO (21:11)
[2018-01-04] MEDS ORDERED: [UNRECOGNIZED DRUG - CODE] PO (21:11)
[2018-01-04] MEDS ORDERED: DOXY100C76 PO (21:11)
[2018-01-04] MEDS ORDERED: NORT25CA PO (21:11)
[2018-01-04] MEDS ORDERED: PRLSR20 PO (21:11)
[2018-01-04] MEDS ORDERED: HYDR50CA2 PO (21:11)
[2018-01-04] MEDS ORDERED: ONDA4TAB46 PO (21:11)
[2018-01-04] MEDS ORDERED: PANTOprazole SOD 40 MG TAB PO STA (21:19)
[2018-01-04] MEDS ORDERED: ALUMINUM/MAGNESIUM/SIMETH (MAALOX MAX) 30 ML UDC PO PRN (22:15)
[2018-01-04] MEDS ORDERED: ACETAMINOPHEN 325 MG TAB PO PRN (22:15)
[2018-01-04] MEDS ORDERED: NITROGLYCERIN 0.4 MG SL PER TAB CHARGE SL PRN (22:15)
[2018-01-04] MEDS ORDERED: ONDANSETRON 4 MG TAB PO PRN (22:15)
[2018-01-04] MEDS ORDERED: ONDANSETRON INJ 2 MG/ML 2 ML VIAL IV PRN (22:15)
[2018-01-04] MEDS ORDERED: LEVO50TA6 PO (22:20)
[2018-01-04 23:20] VITALS: O2SAT 97
[2018-01-05] VITALS (10 sets, daily range): BP systolic 101–127; BP diastolic 51–85; PULSE 58–70; TEMP 36.6–37.4; O2SAT 95–98; Ht 188 cm; Wt 82.8 kg
--- NOTE | 2018-01-05 00:13 | HISTORY & PHYSICAL EXAMINATION ---
DATE OF ADMISSION: 01/04/2018 CHIEF COMPLAINT: Thrombocytopenia. 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 and today his labs showed again low platelets and was brought here. He has a mild epistaxis which is under control now. His platelets are around 5000. ER physician called [facility] for transfer there, but they recommended prednisone and observed for 24 hours. Myself called [facility] again and spoke with the strip presser again for possible of transfer of patient as they know the patient and also if patient started to decompensate we do not have support here, but [facility] wanted to wait with the prednisone and see as they have nothing more to offer.Currently patient is resting comfortably. Denies any headaches, no blurred vision, no dizziness, no cough, no nausea, no vomiting, no ear ache, no runny nose, no sore throat, no chest pain, no shortness of breath, no abdominal pain. Normal bowel and bladder movements. No blood in the stools, no blood in the urine. Appetite is okay. Mostly wheelchair bound because of his back pain, can walk only few steps. ALLERGIES: ASPIRIN, ERYTHROMYCIN, IBUPROFEN, NASAL OCEAN SPRAY, NAPROXEN, BACTRIM. PAST MEDICAL HISTORY: As mentioned above. PAST SURGICAL HISTORY: Colonoscopy, incision and drainage of the knee and ankle, EGD with biopsy, incision and drainage of the deep cervical, thoracic spine incision, incision and drainage of the deep abscess of posterior lumbar spine, laminectomy. MEDICATIONS: The patient is currently on nortriptyline 25 mg p.o. daily, vitamin B6 100 mg b.i.d., Klonopin 2 mg every 8 hours p.r.n., levothyroxine 250 mcg p.o. daily, vitamin B12 1000 mcg daily, multivitamin 1 tablet daily, Tylenol 650 mg p.o. q. 8 hours p.r.n., omeprazole 20 mg p.o. daily, prednisone currently he do not know exact dose, thinks this is 5 mg, he was on prednisone taper, folic acid 1 mg p.o. daily. FAMILY HISTORY: No family history on file. SOCIAL HISTORY: Former smoker, quit in 2017, smoked 2 packs a day. No alcohol use. No drug use. Single, [facility]. REVIEW OF SYMPTOMS: As per HPI. Rest of review of systems negative. PHYSICAL EXAMINATION: GENERAL: The patient is of moderate build, not in distress. VITAL SIGNS: Temperature 36.7, pulse 72, respiratory rate 16, blood pressure 117/70, oxygen 97% room air. HEENT: No pallor, no icterus. Pupils equal, round, and reactive to light. NECK: No JVD, no neck masses, no carotid bruit. CARDIOVASCULAR: S1, S2 heard, regular rate and rhythm, no murmur, no gallop. RESPIRATORY SYSTEM: Clear to auscultation bilaterally. No wheezing, no crackles. ABDOMEN: Soft, bowel sounds present, nontender. No distention. CENTRAL NERVOUS SYSTEM: Cranial nerves II-XII grossly intact. Nonfocal. EXTREMITIES: No edema, no erythema. SKIN: Superficial wound seen on the lower back on the right side with a dressing, non foul smelling. LABORATORY DATA: WBC 5.2, hemoglobin 12.5, hematocrit 38.6, platelets 5. Sodium 140, potassium 3.8, chloride 105, bicarbonate 30, BUN 21, creatinine 0.8, serum glucose 74, calcium 9.1, total bilirubin 0.6, direct bilirubin 0.2, AST 29, ALT 37, alkaline phosphatase 62, lipase 409. PT 9.7, INR 0.9, APTT 22.9. ASSESSMENT AND PLAN: 1. This is a 37-year-old male who presents with severe thrombocytopenia, history of idiopathic thrombocytopenic purpura, status post splenectomy when he was age 20, was treated with prednisone, IVIGs, and Danazol, but Danazol was stopped recently because of elevated liver enzymes. Currently is on prednisone tapering dose, he states he is currently 5 mg. ER Talked with the strip presser at [facility], Dr. Niyah Em. [facility] hematology recommended to give prednisone and watch. I called again, but they still wanted to wait and see. The patient is started on prednisone 80 mg, to continue 80 mg daily. There is a mild epistaxis, but currently controlled. We will watch, if he is bleeding, we will give platelet transfusions, and also consult hematology/oncology and wait for further recommendations. Monitor on tele floor. 2. History of pulmonary embolism status post IVC filter. 3. History of hypothyroidism, continue Synthroid. 4. History of gastroesophageal reflux disease, continue Prilosec. 5. History of anxiety, continue Klonopin and nortriptyline. 6. History of spinal infections , recently finished antibiotic course. We will check for blood cultures because whenever he gets infected, his platelets go down.Has Wound on right lower back. Dressing clean. Wound care consult 7. Deep venous thrombosis prophylaxis, sequential compression devices for now. 8. Disposition: Admit to tele floor. Await response to prednisone and further recommendations from hem/onc. May end up transferring to [facility]. Level 1 full code. MTDD
[2018-01-05] MEDS ORDERED: LEVOTHYROXINE 200 MCG TAB PO SCH (06:00)
[2018-01-05] MEDS ORDERED: LEVOTHYROXINE 50 MCG TAB PO SCH (06:00)
[2018-01-05 06:50] LABS: CREATININE 0.88 mg/dl (0.60-1.40); POTASSIUM 4.3 mmol/L (3.5-5.1)
[2018-01-05 07:11] LABS: HEMATOCRIT 37.1 % (42-52); MEAN CELL VOLUME 106.6 fL (80-100); MEAN CORPUSCULAR HEMOGLOBIN 34.5 pg (25-34); MEAN CORPUSCULAR HGB CONC 32.3 g/dl (32-36); RED CELL DISTRIBUTION WIDTH CV 13.2 % (11.5-14.5); RED CELL DISTRIBUTION WIDTH SD 51.1 fL (36.4-46.3); WHITE BLOOD COUNT 3.04 K/uL (4.8-10.8)
[2018-01-05 07:27] LABS: BASO % 0.3 %; BASO ABS # 0.01 K/uL (0-0.2); LYMPH % 31.3 %; LYMPH ABS # 0.95 K/uL (1.2-3.4); MONO % 7.9 %; MONO ABS # 0.24 K/uL (0.11-0.59); NEUT % 60.5 %; NEUT ABS # 1.84 K/uL (1.4-6.5); PLATELET COUNT 6 K/uL (130-400)
[2018-01-05] MEDS ORDERED: DiphenhydrAMINE HCL 50 MG/ML VIAL IV STA (08:25)
[2018-01-05] MEDS ORDERED: DiphenhydrAMINE HCL 50 MG/ML VIAL IV PRN (08:30)
[2018-01-05] MEDS ORDERED: MULTIVITAMIN TAB PO SCH (09:00)
[2018-01-05] MEDS ORDERED: CYANOCOBALAMIN 100 MCG TAB (VIT B-12) PO SCH (09:00)
[2018-01-05] MEDS ORDERED: PANTOprazole SOD 40 MG TAB PO SCH (09:00)
[2018-01-05] MEDS: CLONAZEPAM 0.5 MG TAB PO SCH ×2 (09:05→21:26)
--- NOTE | 2018-01-05 09:05 | Progress Note ---
Internal Med Progress Note Date of Service: Jan 05, 2018. Provider Documentation: SUBJECTIVE: Patient reports nose bleed. patient reported headache to in house cra. Patient denies chest pain or shortness of breath or abdominal pain or GI bleed OBJECTIVE: Exam: General- no distress Eyes- EOMI ENT- left nare with blood Neck- midline trachea, no JVD Lungs- CTABL, no wheezing Heart- regular rate Abdomen- soft, nontender, positive bowel sounds Extremities- nontender, no edema Neuro- awake and alert, verbal Lab data as noted below. ASSESSMENT & PLAN: HOSPITAL COURSE AND PLANS PMH as per hematology/oncology consult 37 year old male with history of ITP s/p splenectomy, macrocytic anemia, leukopenia Patient states that he has been treated with prednisone, IVIG, N plate and danazol and has received platelet transfusions in the past Danazol was recently discontinued due to abnormal LFTs during his last admission at [facility] He had multiple hospitalizations for severe thrombocytopenia and infection He was admitted in 07/2017 for MRS Bacteremia and epidural abscess and right thigh abscess underwent laminectomy C3-5 T5-8 T11-12 in 07/2017 treated with IV vancomycin completed 09/24/17. He was readmitted to [facility] in 09/2017 with pancytopenia and had bone marrow aspirate and biopsy. Bone marrow 10/16/17 - maturing trilineage hematopoiesis with minimal to mild dysplastic changes. blasts and sideroblasts not increased flow cytometry negative for clonal population etiology of patient's cytopenias cannot be determined with certainty on basis of present morphologic evaluation Assessment and Plan Patient is admitted with severe thrombocytopenia with platelet count of 5,000 Initially the admitting hospitalist discussed with [facility] for further treatment at the tertiary care center at the recommendation of Dr. Contreras in house cra After prednisone 1 mg/kg the patient's platelets only minimally increased from 5 ,000 to 6,000 Daytime hospitalist discussed with Dr. Contreras in house cra on further plans and she recommended Continue prednisone 80 mg daily, give 1 unit of platelet, start IVIG, pretreat with Benadryl recommends transfer to tertiary care facility in case of complications for which patient may not be able to be managed at [facility] such as lack of neurosurgery department; also recommends possible Rituximab medication in the future for which cannot be provided at [facility] Have re-discussed with [facility] in [place] and accepting physician Dr. Schuster hospitalist Have notified Medical Department in [facility] about pending transfer( Tanya CALVO notified) Other health issues Headache: CT head negative for intracranial bleed History of pulmonary embolism status post IVC filter. History of hypothyroidism, continue Synthroid. History of gastroesophageal reflux disease, continue Prilosec. History of anxiety, continue Klonopin and nortriptyline. History of spinal infections , recently finished antibiotic course. Has Wound on right lower back. Dressing clean Deep venous thrombosis prophylaxis, sequential compression device Disposition: awaiting transfer to [facility] in [place] Vital Signs: Date Time Temp Pulse Resp B/P (MAP) Pulse Ox O2 Delivery O2 Flow Rate FiO2 01/05/18 12:30 36.6 58 18 116/53 98 01/05/18 11:30 36.6 67 16 124/82 97 01/05/18 11:00 36.7 70 16 127/85 97 01/05/18 10:43 36.6 61 16 116/72 98 01/05/18 06:56 36.9 63 17 120/69 (86) 95 Room Air 01/05/18 04:05 36.8 64 17 106/68 (81) 96 Room Air 01/05/18 00:10 37.4 61 16 110/69 Room Air 01/04/18 23:20 74 18 139/89 97 Room Air 01/04/18 21:40 72 16 117/70 97 01/04/18 20:36 116/89 95 Room Air 01/04/18 20:35 71 21 01/04/18 20:30 109/73 01/04/18 20:29 69 19 01/04/18 20:01 106/71 01/04/18 19:59 83 18 01/04/18 19:46 69 01/04/18 19:30 110/71 01/04/18 17:31 36.7 81 18 123/77 97 Room Air Lab Results: Results Past 24 Hours Test 01/04/18 19:05 01/05/18 06:05 01/05/18 11:05 01/05/18 11:07 Range/Units White Blood Count 5.20 3.04 4.8-10.8 K/uL Red Blood Count 3.60 3.48 4.7-6.1 M/uL Hemoglobin 12.5 12.0 14.0-18.0 g/dL Hematocrit 38.6 37.1 42-52 % Mean Corpuscular Volume 107.2 106.6 80-100 fL Mean Corpuscular Hemoglobin 34.7 34.5 25-34 pg Mean Corpuscular Hemoglobin Concent 32.4 32.3 32-36 g/dl Platelet Count 5 6 130-400 K/uL RDW Standard Deviation 51.3 51.1 36.4-46.3 fL RDW Coefficient of Variation 13.1 13.2 11.5-14.5 % Neutrophils % (Manual) 37.6 % Lymphocytes % (Manual) 27.2 % Variant Lymphocytes % (manual) 15.8 % Monocytes % (Manual) 15.8 % Eosinophils % (Manual) 1.8 % Basophils % (Manual) 1.8 0-2 % Neutrophils # (Manual) 1.96 1.4-6.5 K/uL Total Absolute Neutrophils 1.96 1.4-6.5 K/uL Lymphocytes # (Manual) 1.41 1.2-3.4 K/uL Absolute Variant Lymphocytes 0.82 K/uL Total Absolute Lymphocytes 2.24 1.2-3.4 K/uL Monocytes # (Manual) 0.82 0.11-0.59 K/uL Eosinophils # (Manual) 0.09 0-0.5 K/uL Basophils # (Manual) 0.09 0-0.2 K/uL Stomatocytes 1+ Prothrombin Time 9.7 9.0-12.0 SECONDS Prothromb Time International Ratio 0.9 0.9-1.1 Activated Partial Thromboplast Time 22.9 21.0-31.0 SECONDS Partial Thromboplastin Ratio 0.9 Sodium Level 140 139 136-145 mmol/L Potassium Level 3.8 4.3 3.5-5.1 mmol/L Chloride Level 105 110 98-107 mmol/L Carbon Dioxide Level 30 25 21-32 mmol/L Anion Gap 4.0 4.0 3-11 mmol/L Blood Urea Nitrogen 21 17 7-18 mg/dl Creatinine 0.87 0.88 0.60-1.40 mg/dl Estimated GFR () 126.9 126.3 Estimated GFR (Non- 109.5 109.0 BUN/Creatinine Ratio 24.0 19.1 10-20 Random Glucose 74 122 70-99 mg/dl Calcium Level 9.1 9.0 8.5-10.1 mg/dl Total Bilirubin 0.6 0.2-1 mg/dl Direct Bilirubin 0.2 0-0.2 mg/dl Aspartate Amino Transf (AST/SGOT) 29 15-37 U/L Alanine Aminotransferase (ALT/SGPT) 37 12-78 U/L Alkaline Phosphatase 62 45-117 U/L Total Protein 7.6 6.4-8.2 gm/dl Albumin 3.7 3.4-5.0 gm/dl Lipase 409 73-393 U/L Neutrophils (%) (Auto) 60.5 % Lymphocytes (%) (Auto) 31.3 % Monocytes (%) (Auto) 7.9 % Eosinophils (%) (Auto) 0.0 % Basophils (%) (Auto) 0.3 % Neutrophils # (Auto) 1.84 1.4-6.5 K/uL Lymphocytes # (Auto) 0.95 1.2-3.4 K/uL Monocytes # (Auto) 0.24 0.11-0.59 K/uL Eosinophils # (Auto) 0.00 0-0.5 K/uL Basophils # (Auto) 0.01 0-0.2 K/uL Immature Granulocyte % (Auto) 0.0 % Immature Granulocyte # (Auto) 0.00 0.00-0.02 K/uL Platelet Estimate SIGNIFIC DECREASED Spherocytes OCCASIONAL Curry-Thermal Bodies OCCASIONAL Est Creatinine Clear Calc Drug Dose 132.4 ml/min Magnesium Level 2.4 1.8-2.4 mg/dl
[2018-01-05] MEDS: hydrOXYzine HCL 25 MG TAB PO SCH ×2 (09:06→21:00)
[2018-01-05] MEDS: PYRIDOXINE HCL 50 MG TAB PO SCH ×2 (09:07→21:26)
--- NOTE | 2018-01-05 12:15 | DIAGNOSTIC IMAGING REPORT ---
CT SCAN OF THE BRAIN WITHOUT IV CONTRAST CLINICAL HISTORY: Thrombocytopenia. COMPARISON STUDY: CT of the brain dated 10/12/2017. TECHNIQUE: Unenhanced axial CT scan of the brain is performed from the vertex to the skull base. A dose lowering technique was utilized adhering to the principles of ALARA. CT DOSE: 614.27 mGy.cm FINDINGS: Brain parenchyma: The brain parenchyma is normal in appearance. There is no hemorrhage, mass effect, or evidence of acute territorial ischemia by CT criteria. Contreras-white matter is preserved. No extra-axial fluid collection is seen. Ventricles, sulci, cisterns: Normal in configuration. Intracranial vasculature: The visualized intracranial vasculature at the skull base is normal in appearance. Calvarium: Unremarkable. Sinuses and mastoids: The visualized paranasal sinuses are clear. The mastoid air cells are well pneumatized. Orbits: The bony orbits are grossly intact. IMPRESSION: No acute intracranial abnormality. Electronically signed by: Yevgeniy Machado M.D. 01/05/2018 12:14 PM Dictated Date/Time: 01/05/2018 12:12 PM
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
--- NOTE | 2018-01-05 13:14 | Discharge Instructions ---
Discharge Instructions Date of Service Jan 05, 2018. Admission Reason for Admission: Autoimmune Thrombocytopenia Discharge Discharge Diagnosis / Problem: SEVERE THROMBOCYTOPENIA (AUTOIMMUNE) Discharge Goals Goal(s): Improve disease control Activity Recommendations Activity Limitations: per Instructions/Follow-up section . Instructions / Follow-Up Instructions / Follow-Up HOSPITAL COURSE AND PLANS PMH as per hematology/oncology consult 37 year old male with history of ITP s/p splenectomy, macrocytic anemia, leukopenia Patient states that he has been treated with prednisone, IVIG, N plate and danazol and has received platelet transfusions in the past Danazol was recently discontinued due to abnormal LFTs [place] [facility] [place] had multiple hospitalizations for severe thrombocytopenia and infection He was admitted in 07/2017 for MRS Bacteremia and epidural abscess and right thigh abscess underwent laminectomy C3-5 T5-8 T11-12 in 07/2017 treated with IV vancomycin completed 09/24/17. He was readmitted [place] [facility] [place] with pancytopenia and had bone marrow aspirate and biopsy. Bone marrow 10/16/17 - maturing trilineage hematopoiesis with minimal to mild dysplastic changes. blasts and sideroblasts not increased flow cytometry negative for clonal population etiology of patient's cytopenias cannot be determined with certainty on basis of present morphologic evaluation Assessment and Plan Patient is admitted with severe thrombocytopenia with platelet count of 5,000 Initially the admitting hospitalist discussed with [facility] for further treatment at the tertiary care center at the recommendation of Dr. Contreras radio time buyer After prednisone 1 mg/kg the patient's platelets only minimally increased from 5 ,000 to 6,000 Daytime hospitalist discussed with Dr. Contreras radio time buyer on further plans and she recommended Continue prednisone 80 mg daily, give 1 unit of platelet, start IVIG, pretreat with Benadryl recommends transfer to tertiary care facility in case of complications for which patient may not be able to be managed at [facility] such as lack of neurosurgery department; also recommends possible Rituximab medication in the future for which cannot be provided at [facility] Have re-discussed with [facility] in [place] and accepting physician Dr. Schuster hospitalist Have notified Medical Department in [facility] about pending transfer( Tanya CALVO notified) Other health issues Headache: CT head negative for intracranial bleed History of pulmonary embolism status post IVC filter. History of hypothyroidism, continue Synthroid. History of gastroesophageal reflux disease, continue Prilosec. History of anxiety, continue Klonopin and nortriptyline. History of spinal infections , recently finished antibiotic course. Has Wound on right lower back. Dressing clean Deep venous thrombosis prophylaxis, sequential compression device Disposition: awaiting transfer to [facility] in [facility] Diet Patient's current hospital diet: Regular Diet Discharge Diet Recommended Diet: Regular Diet Pending Studies Studies pending at discharge: no Laboratory Results 01/05/18 06:05 Red Blood Count 3.48, Mean Corpuscular Volume 106.6, Mean Corpuscular Hemoglobin 34.5, Mean Corpuscular Hemoglobin Concent 32.3, Neutrophils (%) (Auto ) 60.5, Lymphocytes (%) (Auto) 31.3, Monocytes (%) (Auto) 7.9, Eosinophils (%) ( Auto) 0.0, Basophils (%) (Auto) 0.3, Neutrophils # (Auto) 1.84, Lymphocytes # ( Auto) 0.95, Monocytes # (Auto) 0.24, Eosinophils # (Auto) 0.00, Basophils # ( Auto) 0.01 01/05/18 06:05 Test 01/04/18 19:05 01/05/18 06:05 01/05/18 11:05 Neutrophils % (Manual) 37.6 % Lymphocytes % (Manual) 27.2 % Variant Lymphocytes % (manual) 15.8 % Monocytes % (Manual) 15.8 % Eosinophils % (Manual) 1.8 % Basophils % (Manual) 1.8 % (0-2) Neutrophils # (Manual) 1.96 K/uL (1.4-6.5) Total Absolute Neutrophils 1.96 K/uL (1.4-6.5) Lymphocytes # (Manual) 1.41 K/uL (1.2-3.4) Absolute Variant Lymphocytes 0.82 K/uL Total Absolute Lymphocytes 2.24 K/uL (1.2-3.4) Monocytes # (Manual) 0.82 K/uL (0.11-0.59) Eosinophils # (Manual) 0.09 K/uL (0-0.5) Basophils # (Manual) 0.09 K/uL (0-0.2) Stomatocytes 1+ Prothrombin Time 9.7 SECONDS (9.0-12.0) Prothromb Time International Ratio 0.9 (0.9-1.1) Activated Partial Thromboplast Time 22.9 SECONDS (21.0-31.0) Partial Thromboplastin Ratio 0.9 Total Bilirubin 0.6 mg/dl (0.2-1) Direct Bilirubin 0.2 mg/dl (0-0.2) Aspartate Amino Transf (AST/SGOT) 29 U/L (15-37) Alanine Aminotransferase (ALT/SGPT) 37 U/L (12-78) Alkaline Phosphatase 62 U/L (45-117) Total Protein 7.6 gm/dl (6.4-8.2) Albumin 3.7 gm/dl (3.4-5.0) Lipase 409 U/L (73-393) White Blood Count 3.04 K/uL (4.8-10.8) Red Blood Count 3.48 M/uL (4.7-6.1) Hemoglobin 12.0 g/dL (14.0-18.0) Hematocrit 37.1 % (42-52) Mean Corpuscular Volume 106.6 fL (80-100) Mean Corpuscular Hemoglobin 34.5 pg (25-34) Mean Corpuscular Hemoglobin Concent 32.3 g/dl (32-36) Platelet Count 6 K/uL (130-400) Neutrophils (%) (Auto) 60.5 % Lymphocytes (%) (Auto) 31.3 % Monocytes (%) (Auto) 7.9 % Eosinophils (%) (Auto) 0.0 % Basophils (%) (Auto) 0.3 % Neutrophils # (Auto) 1.84 K/uL (1.4-6.5) Lymphocytes # (Auto) 0.95 K/uL (1.2-3.4) Monocytes # (Auto) 0.24 K/uL (0.11-0.59) Eosinophils # (Auto) 0.00 K/uL (0-0.5) Basophils # (Auto) 0.01 K/uL (0-0.2) RDW Standard Deviation 51.1 fL (36.4-46.3) RDW Coefficient of Variation 13.2 % (11.5-14.5) Immature Granulocyte % (Auto) 0.0 % Immature Granulocyte # (Auto) 0.00 K/uL (0.00-0.02) Platelet Estimate SIGNIFIC DECREASED Spherocytes OCCASIONAL Curry-Bolan Bodies OCCASIONAL Anion Gap 4.0 mmol/L (3-11) Est Creatinine Clear Calc Drug Dose 132.4 ml/min Estimated GFR () 126.3 Estimated GFR (Non- 109.0 BUN/Creatinine Ratio 19.1 (10-20) Calcium Level 9.0 mg/dl (8.5-10.1) Magnesium Level 2.4 mg/dl (1.8-2.4) Medical Emergencies . Who to Call and When: Medical Emergencies: If at any time you feel your situation is an emergency, please call 911 immediately. . Non-Emergent Contact Non-Emergency issues call your: Specialist Call Non-Emergent contact if: you have any medication questions . . "Provider Documentation" section prepared by Dirk Neil. .
--- NOTE | 2018-01-05 13:16 | Discharge Summary ---
Discharge Summary Date of Service Jan 05, 2018. Discharge Summary Admission Date: Jan 04, 2018 at 22:17 Discharge Disposition: Acute care facility ([facility] in [place]) Principal Diagnosis: severe thrombocytopenia (autoimmune) left nasal bleed Secondary Diagnoses/Problems: History of pulmonary embolism with IVC filter History of hypothyroidism History of gastroesophageal reflux disease History of anxiety History of spinal infection in the past Admission Information HPI (per Admitting provider): CHIEF COMPLAINT: Thrombocytopenia. 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 [facility] and today his labs showed again low platelets and was brought here. He has a mild epistaxis which is under control now. His platelets are around 5000. ER physician called [place] for transfer there, but they recommended prednisone and observed for 24 hours. Myself called [place] again and spoke with the mental health practitioner again for possible of transfer of patient as they know the patient and also if patient started to decompensate we do not have support here, but [place] wanted to wait with the prednisone and see as they have nothing more to offer.Currently patient is resting comfortably. Denies any headaches, no blurred vision, no dizziness, no cough, no nausea, no vomiting, no ear ache, no runny nose, no sore throat, no chest pain, no shortness of breath, no abdominal pain. Normal bowel and bladder movements. No blood in the stools, no blood in the urine. Appetite is okay. Mostly wheelchair bound because of his back pain, can walk only few steps. ALLERGIES: ASPIRIN, ERYTHROMYCIN, IBUPROFEN, NASAL OCEAN SPRAY, NAPROXEN, BACTRIM. PAST MEDICAL HISTORY: As mentioned above. PAST SURGICAL HISTORY: Colonoscopy, incision and drainage of the knee and ankle, EGD with biopsy, incision and drainage of the deep cervical, thoracic spine incision, incision and drainage of the deep abscess of posterior lumbar spine, laminectomy. MEDICATIONS: The patient is currently on nortriptyline 25 mg p.o. daily, vitamin B6 100 mg b.i.d., Klonopin 2 mg every 8 hours p.r.n., levothyroxine 250 mcg p.o. daily, vitamin B12 1000 mcg daily, multivitamin 1 tablet daily, Tylenol 650 mg p.o. q. 8 hours p.r.n., omeprazole 20 mg p.o. daily, prednisone currently he do not know exact dose, thinks this is 5 mg, he was on prednisone taper, folic acid 1 mg p.o. daily. FAMILY HISTORY: No family history on file. SOCIAL HISTORY: Former smoker, quit in 2017, smoked 2 packs a day. No alcohol use. No drug use. Single, currently at the [facility]. REVIEW OF SYMPTOMS: As per HPI. Rest of review of systems negative. Physical Exam (per Admitting): PHYSICAL EXAMINATION: GENERAL: The patient is of moderate build, not in distress. VITAL SIGNS: Temperature 36.7, pulse 72, respiratory rate 16, blood pressure 117/70, oxygen 97% room air. HEENT: No pallor, no icterus. Pupils equal, round, and reactive to light. NECK: No JVD, no neck masses, no carotid bruit. CARDIOVASCULAR: S1, S2 heard, regular rate and rhythm, no murmur, no gallop. RESPIRATORY SYSTEM: Clear to auscultation bilaterally. No wheezing, no crackles. ABDOMEN: Soft, bowel sounds present, nontender. No distention. CENTRAL NERVOUS SYSTEM: Cranial nerves II-XII grossly intact. Nonfocal. EXTREMITIES: No edema, no erythema. SKIN: Superficial wound seen on the lower back on the right side with a dressing, non foul smelling. Hospital Course HOSPITAL COURSE AND PLANS PMH as per hematology/oncology consult 37 year old male with history of ITP s/p splenectomy, macrocytic anemia, leukopenia Patient states that he has been treated with prednisone, IVIG, N plate and danazol and has received platelet transfusions in the past Danazol was recently discontinued due to abnormal LFTs during his last admission at [facility] He had multiple hospitalizations for severe thrombocytopenia and infection He was admitted in 07/2017 for MRS Bacteremia and epidural abscess and right thigh abscess underwent laminectomy C3-5 T5-8 T11-12 in 07/2017 treated with IV vancomycin completed 09/24/17. He was readmitted to [facility] in 09/2017 with pancytopenia and had bone marrow aspirate and biopsy. Bone marrow 10/16/17 - maturing trilineage hematopoiesis with minimal to mild dysplastic changes. blasts and sideroblasts not increased flow cytometry negative for clonal population etiology of patient's cytopenias cannot be determined with certainty on basis of present morphologic evaluation Assessment and Plan Patient is admitted with severe thrombocytopenia with platelet count of 5,000 Initially the admitting hospitalist discussed with [facility] for further treatment at the tertiary [facility] at the recommendation of Dr. Contreras mental health practitioner After prednisone 1 mg/kg the patient's platelets only minimally increased from 5 ,000 to 6,000 Daytime hospitalist discussed with Dr. Contreras mental health practitioner on further plans and she recommended Continue prednisone 80 mg daily, give 1 unit of platelet, start IVIG, pretreat with Benadryl recommends transfer to tertiary care facility in case of complications for which patient may not be able to be managed at [facility] such as lack of neurosurgery department; also recommends possible Rituximab medication in the future for which cannot be provided at [facility] Have re-discussed with [facility] in [place] and accepting physician Dr. Schuster hospitalist Have notified Medical Department in [facility] about pending transfer( Tanya CALVO notified) Other health issues Headache: CT head negative for intracranial bleed History of pulmonary embolism status post IVC filter. History of hypothyroidism, continue Synthroid. History of gastroesophageal reflux disease, continue Prilosec. History of anxiety, continue Klonopin and nortriptyline. History of spinal infections , recently finished antibiotic course. Has Wound on right lower back. Dressing clean Deep venous thrombosis prophylaxis, sequential compression device Disposition: awaiting transfer to [facility] in [place] Total time spent on discharge = 40 minutes This includes examination of the patient, discharge planning, medication reconciliation, and communication with other providers. Discharge Instructions see above
[2018-01-05] MEDS ORDERED: BOOST VANILLA OR BOOST GLUCOSE CONTROL CHOCOLATE PO SCH (14:00)
[2018-01-05 16:05] LABS: RETIC COUNT % 2.4 % (0.5-2.0)
[2018-01-05 16:14] LABS: BASO % 0.2 %; BASO ABS # 0.01 K/uL (0-0.2); HEMATOCRIT 32.7 % (42-52); HEMOGLOBIN 10.6 g/dL (14.0-18.0); IG# 0.01 K/uL (0.00-0.02); LYMPH % 11.8 %; LYMPH ABS # 0.59 K/uL (1.2-3.4); MEAN CELL VOLUME 106.9 fL (80-100); MEAN CORPUSCULAR HEMOGLOBIN 34.6 pg (25-34); MEAN CORPUSCULAR HGB CONC 32.4 g/dl (32-36); MONO % 6.8 %; MONO ABS # 0.34 K/uL (0.11-0.59); NEUT ABS # 4.06 K/uL (1.4-6.5); PLATELET COUNT 50 K/uL (130-400); RED CELL DISTRIBUTION WIDTH CV 13.1 % (11.5-14.5); RED CELL DISTRIBUTION WIDTH SD 50.6 fL (36.4-46.3); WHITE BLOOD COUNT 5.01 K/uL (4.8-10.8)
[2018-01-05] MEDS ORDERED: NORTRIPTYLINE HCL 25 MG CAP PO SCH (21:00)
[2018-01-06 02:04] VITALS: BP 101/53; PULSE 61; TEMP 37.3; O2SAT 98
[2018-01-08 13:48] LABS: ANA SCREEN TC 249X NEGATIVE (NEGATIVE); HAPTOGLOBIN TC 45427W 25 MG/DL (43-212)
== END 2018-01-06 02:00 | disposition short-term general hospital (02) | DRG 813 ==
LOC: C.EDB 17:00 → C.2T 22:17 → ENRESERV 22:30
PROVIDERS: ADMIT Internal Medicine; ATTEND Hospitalist
DX: D69.3 Immune thrombocytopenic purpura (principal); Z86.13 Personal history of malaria; E03.9 Hypothyroidism, unspecified; F60.9 Personality disorder, unspecified; Z88.6 Allergy status to analgesic agent; Z88.2 Allergy status to sulfonamides; Z88.0 Allergy status to penicillin; R04.0 Epistaxis; Z90.81 Acquired absence of spleen; Z86.711 Personal history of pulmonary embolism; K21.9 Gastro-esophageal reflux disease without esophagitis; Z95.828 Presence of other vascular implants and grafts

== ENCOUNTER → 2018-01-04 | Outpatient (CLI) | payer OTHER ==
[2018-01-04 11:56] LABS: HEMATOCRIT 37.1 % (42-52); HEMOGLOBIN 11.7 g/dL (14.0-18.0); MEAN CELL VOLUME 108.5 fL (80-100); MEAN CORPUSCULAR HEMOGLOBIN 34.2 pg (25-34); MEAN CORPUSCULAR HGB CONC 31.5 g/dl (32-36); RED CELL DISTRIBUTION WIDTH CV 13.1 % (11.5-14.5); RED CELL DISTRIBUTION WIDTH SD 51.6 fL (36.4-46.3); WHITE BLOOD COUNT 7.98 K/uL (4.8-10.8)
[2018-01-04 12:10] LABS: BASO % 1.1 %; BASO ABS # 0.09 K/uL (0-0.2); EOS % 1.4 %; EOS ABS # 0.11 K/uL (0-0.5); IG# 0.01 K/uL (0.00-0.02); LYMPH ABS # 1.04 K/uL (1.2-3.4); MONO % 19.2 %; MONO ABS # 1.53 K/uL (0.11-0.59); NEUT % 65.2 %; PLATELET COUNT 5 K/uL (130-400)
== END ==
LOC: C.LABSPEC 11:11
PROVIDERS: ATTEND Family Medicine
DX: D69.3 Immune thrombocytopenic purpura (principal)

== ENCOUNTER → 2018-01-10 | Outpatient (CLI) | payer OTHER ==
[~2018-01-10] MED LIST changes: -ACET-1175 PO; +DOXY100C76 PO; +LEVO200T6 PO; -LEVO50TA PO; +LEVO50TA6 PO; -MULT1CAP57 PO; +NORT25CA PO; -NUTR-1260 PO; +ONDA4TAB46 PO; +PRD/1 PO; +PRLSR20 PO; +[UNRECOGNIZED DRUG - CODE] PO; -[UNRECOGNIZED DRUG - CODE] PO; -[UNRECOGNIZED DRUG - CODE] SQ
[2018-01-10 11:22] LABS: BASO % 0.1 %; BASO ABS # 0.01 K/uL (0-0.2); HEMOGLOBIN 12.5 g/dL (14.0-18.0); IG# 0.01 K/uL (0.00-0.02); LYMPH % 9.5 %; LYMPH ABS # 0.83 K/uL (1.2-3.4); MEAN CELL VOLUME 108.7 fL (80-100); MEAN PLATELET VOLUME 9.6 fL (7.4-10.4); MONO % 4.2 %; MONO ABS # 0.37 K/uL (0.11-0.59); NEUT % 86.1 %; NEUT ABS # 7.56 K/uL (1.4-6.5); PLATELET COUNT 171 K/uL (130-400); RED CELL DISTRIBUTION WIDTH CV 13.3 % (11.5-14.5); RED CELL DISTRIBUTION WIDTH SD 52.9 fL (36.4-46.3); WHITE BLOOD COUNT 8.78 K/uL (4.8-10.8)
[2018-01-10 11:26] LABS: MEAN CORPUSCULAR HGB CONC 31.3 g/dl (32-36)
== END | disposition home or self-care (01) ==
LOC: C.LABSPEC 11:10
PROVIDERS: ATTEND Physician Assistant Medical
DX: D69.3 Immune thrombocytopenic purpura (principal)

== ENCOUNTER → 2018-01-15 | Outpatient (CLI) | payer OTHER ==
[2018-01-15 11:10] LABS: BASO % 0.1 %; BASO ABS # 0.01 K/uL (0-0.2); HEMATOCRIT 40.7 % (42-52); HEMOGLOBIN 12.9 g/dL (14.0-18.0); IG# 0.04 K/uL (0.00-0.02); LYMPH % 5.1 %; LYMPH ABS # 0.86 K/uL (1.2-3.4); MEAN CELL VOLUME 106.8 fL (80-100); MEAN CORPUSCULAR HEMOGLOBIN 33.9 pg (25-34); MEAN PLATELET VOLUME 10.3 fL (7.4-10.4); MONO % 5.8 %; MONO ABS # 0.98 K/uL (0.11-0.59); NEUT % 88.8 %; NEUT ABS # 15.13 K/uL (1.4-6.5); PLATELET COUNT 108 K/uL (130-400); RED CELL DISTRIBUTION WIDTH CV 13.3 % (11.5-14.5); RED CELL DISTRIBUTION WIDTH SD 52.2 fL (36.4-46.3); WHITE BLOOD COUNT 17.02 K/uL (4.8-10.8)
[2018-01-15 11:18] LABS: MEAN CORPUSCULAR HGB CONC 31.7 g/dl (32-36)
--- NOTE | 2018-01-23 08:12 | CODING QUERY MEDICAL NECESSITY ---
CQTREATMENT RENDERED WITHOUT A DIAGNOSIS To promote full compliance with coding requirements relating to patient care, physician participation is requested in all cases of music instructor uncertainty. Please assist us with providing a diagnosis/symptom for the test(s) below: A diagnosis/symptom was not documented on your Order. A valid diagnosis/symptom is required to bill all insurances. Please remember that we are unable to code a diagnosis of rule out, probable, possible, questionable, or suspected. Tests that require a diagnosis: DOS 01/15/18 CBC TEST PERIPHERAL PATHOLOGY SMEAR Provider Signature: Date: Thank you Miriam Hagen Health Information Management Once completed, please kindly fax back to [phone] For questions please call [phone]
== END | disposition home or self-care (01) ==
LOC: C.LABSPEC 10:57
DX: Z00.00 Encounter for general adult medical examination without abnormal findings (principal)

== ENCOUNTER → 2018-01-17 | Outpatient (CLI) | payer OTHER ==
[~2018-01-17] MED LIST changes: +ACET-1175 PO; +LEVO1TAB34 PO; +LEVO50TA PO; +MULT1CAP57 PO; +NUTR-1260 PO; +[UNRECOGNIZED DRUG - CODE] PO; +[UNRECOGNIZED DRUG - CODE] SQ
[2018-01-17 12:04] LABS: HEMATOCRIT 41.8 % (42-52); HEMOGLOBIN 13.4 g/dL (14.0-18.0); MEAN CELL VOLUME 104.8 fL (80-100); MEAN CORPUSCULAR HEMOGLOBIN 33.6 pg (25-34); RED CELL DISTRIBUTION WIDTH CV 13.3 % (11.5-14.5); WHITE BLOOD COUNT 9.52 K/uL (4.8-10.8)
[2018-01-17 12:35] LABS: BASO % 0.1 %; BASO ABS # 0.01 K/uL (0-0.2); EOS % 0.1 %; EOS ABS # 0.01 K/uL (0-0.5); IG# 0.03 K/uL (0.00-0.02); LYMPH ABS # 0.57 K/uL (1.2-3.4); MEAN CORPUSCULAR HGB CONC 32.1 g/dl (32-36); MEAN PLATELET VOLUME 10.8 fL (7.4-10.4); MONO % 6.3 %; NEUT % 87.2 %; PLATELET COUNT 75 K/uL (130-400)
== END ==
LOC: C.LABSPEC 11:55
PROVIDERS: ATTEND Physician Assistant Medical
DX: D69.6 Thrombocytopenia, unspecified (principal)